=== PATIENT | male | born 1990 | race African-American/Black ===

== ENCOUNTER 2021-06-06 11:49 | Emergency (ER) | payer MEDICAID, OTHER ==
[~2021-06-06] VITALS: Ht 165.1 cm; Wt 72.6 kg
--- NOTE | 2021-06-06 12:06 | NUR ---
Dr Camacho at the bedside for MSE.
[2021-06-06] MEDS ORDERED: ACETAMINOPHEN 325 MG TABLET PO ONE (12:15)
[2021-06-06] MEDS ORDERED: PSEUDOEPHEDRINE HCL 30 MG TABLET PO ONE (12:15)
[2021-06-06] MEDS ORDERED: PSEUDOEPHEDRINE HCL 30 MG TABLET ONE (12:23)
[2021-06-06] MEDS ORDERED: ACETAMINOPHEN 325 MG TABLET ONE (12:23)
[2021-06-06] MEDS ORDERED: PSEU120T57 PO (12:39)
[2021-06-06 12:51] VITALS: BP 130/78
--- NOTE | 2021-06-06 12:51 | NUR ---
Pt states his nasal congestion is better.
--- NOTE | 2021-06-06 12:52 | NUR ---
Patient discharged to home in stable condition. Written and verbal after care instructions given. Patient verbalizes understanding of instructions. Stressed follow up or return to ER for worsening s/s.
== END 2021-06-06 12:52 | disposition home or self-care (01) ==
LOC: ER 11:49
DX: J34.89 Other specified disorders of nose and nasal sinuses (principal); R09.81 Nasal congestion; Z20.822 Contact with and (suspected) exposure to COVID-19
CPT/HCPCS: A4663